=== PATIENT | female | born 1980 | race Caucasian/White ===

== ENCOUNTER 2018-10-04 08:06 | Emergency (ER) | payer BC ==
[~2018-10-04] VITALS: Ht 162.6 cm; Wt 93.0 kg
[2018-10-04] MEDS ORDERED: IV NORMAL SALINE 1,000ML 1,000 ML IV ONE (08:45)
[2018-10-04] MEDS ORDERED: IOHEXOL 300 MG/ML 75 ML VIAL. IV ONE (08:45)
--- NOTE | 2018-10-04 08:45 | PHYS DOC ---
Past History Past Medical History: Asthma Past Surgical History: No Surgical History Alcohol Use: Occasionally Drug Use: None Adult General Chief Complaint Chief Complaint: SORE THROAT HPI HPI 38-year-old female presents with rash, abdominal pain, sore throat. The patient got an insect bite a few days ago. The next morning, she started half an erythematous rash on her abdomen and upper thighs. It has continued to spread across her abdomen. It is occasionally pruritic, but mostly painful to palpation. She also has a sore throat this AM. She felt like she might have a fever, but did not measure one. Over the same 2 days, she has had abdominal pain with eating. She does have symptoms similar to this on occasion, but not as persistent. She has had diarrhea for a couple of weeks. She is currently taking PPI because of concern for a developing gastric ulcer. He is suspicious this may be what's going on, but has not had an EGD for verification. The patient has s evere seasonal allergies. She did hang her laundry to dry recently because the dryer was broken. No other changes in cosmetics or lotions. Review of Systems Review of Systems Constitutional: Denies fever or chills [] Eyes: Denies change in visual acuity, redness, or eye pain [] HENT: sore throat [] Respiratory: Denies cough or shortness of breath [] Cardiovascular: No additional information not addressed in HPI [] GI: Epigastric abdominal pain, nausea, diarrhea [] : Denies dysuria or hematuria [] Musculoskeletal: Denies back pain or joint pain [] Integument: Rash[] Neurologic: Denies headache, focal weakness or sensory changes [] Endocrine: Denies polyuria or polydipsia [] All other systems were reviewed and found to be within normal limits, except as documented in this note. Current Medications Current Medications Current Medications Medications (Trade) Dose Ordered Sig/Barbara Start Time Stop Time Status Last Admin Dose Admin Sodium Chloride 1,000 ml @ 1,000 mls/hr 1X ONCE 10/04/18 08:45 10/04/18 09:44 UNV Allergies Allergies Allergies Coded Allergies Type Severity Reaction Last Updated Verified Sulfa (Sulfonamide Antibiotics) Allergy Intermediate 10/04/18 Yes Physical Exam Physical Exam Constitutional: Well developed, obese, well nourished, no acute distress, non- toxic appearance. [] HENT: Normocephalic, atraumatic, bilateral external ears normal, oropharynx moist, no pharyngeal erythema, no oral exudates, nose normal. [] Eyes: PERRLA, EOMI, conjunctiva normal, no discharge. [] Neck: Normal range of motion, no tenderness, supple, no stridor. [] Cardiovascular:Heart rate regular rhythm, no murmur [] Lungs & Thorax: Bilateral breath sounds clear to auscultation [] Abdomen: Bowel sounds normal, soft, mild epigastric tenderness, no masses, no pulsatile masses. [] Skin: Scattered erythematous papules, not warm to the touch over the lower abdomen and upper thighs.[] Back: No tenderness, no CVA tenderness. [] Extremities: No tenderness, no cyanosis, no clubbing, ROM intact, no edema. [] Neurologic: Alert and oriented X 3, normal motor function, normal sensory function, no focal deficits noted. [] Psychologic: Affect normal, judgement normal, mood normal. [] Current Patient Data Vital Signs Vital Signs Date Time Temp Pulse Resp B/P (MAP) Pulse Ox O2 Delivery O2 Flow Rate FiO2 10/04/18 08:19 98.5 83 22 100 Room Air EKG EKG [] Radiology/Procedures Radiology/Procedures [] Impressions: ABDOMEN LTD History: Gallstone. Right upper quadrant pain. Comparison: CT October 04, 2018. Technique: Transabdominal ultrasound images are obtained of the right upper quadrant. Findings: Visualized pancreas is unremarkable. Chronic, well seen due to overlying bowel gas. Liver is normal in echogenicity. Right hepatic lobe measures 16.1 cm. Portal flow is hepatopedal. Mobile stone within the lumen of the gallbladder measures 2.7 cm. No pericholecystic fluid or gallbladder wall thickening. Negative sonographic Juárez sign. Common bile duct caliber is normal measuring 2.7 mm in diameter. The right kidney measures 10.8 x 3.9 x 4.3 cm in length and is without evidence of obstruction or stone. IVC is patent. Nonaneurysmal proximal and mid aorta. Distal aorta not well seen due to overlying bowel gas. IMPRESSION: 1. Cholelithiasis. Electronically signed by: Marc Scales DO (10/04/2018 10:34 AM) [facility] DICTATED AND SIGNED BY: MARC SCALES DO DATE: 10/04/18 1034 CC: FRANCES BETTENCOURT DO; HESHAM MUIR ~ Axial CT of the abdomen and pelvis were obtained after the administration of 75 cc Isovue 370. Coronal and sagittal reformats are also available. Exposure: One or more of the following individualized dose reduction techniques were utilized for this examination: 1. Automated exposure control 2. Adjustment of the mA and/or kV according to patient size 3. Use of iterative reconstruction technique Indication: Right-sided abdominal pain and diarrhea. Comparison: None. Findings: The heart is unenlarged. Lung bases are clear. Liver is unremarkable in appearance. Spleen, adrenals, kidneys and pancreas appear normal. There may be a radiolucent stone in the gallbladder lumen. The stomach, small and large bowel are nondistended. No free air or fluid. Abdominal aorta is nonaneurysmal. Portal, superior mesenteric and splenic veins are normal in appearance. Bony structures are unremarkable in appearance. IMPRESSION: 1. Possible radiolucent gallstone. Correlate with ultrasound imaging. There may also be mild pericholecystic fluid. Again ultrasound correlation would BE helpful. Electronically signed by: Trino Nixon MD (10/04/2018 9:16 AM) [facility] DICTATED AND SIGNED BY: TRINO NIXON MD DATE: 10/04/18 0916 CC: FRANCES BETTENCOURT DO; HESHAM MUIR ~ Course & Med Decision Making Course & Med Decision Making Pertinent Labs and Imaging studies reviewed. (See chart for details) Patient's labs are unremarkable. Her CT scan shows gallstone and a further options recommended. Portion shows large gallstone, but is nonobstructing. The patient may be having an allergic reaction in addition to her chronic gallbladder problem. I will treat her with Benadryl and Solu-Medrol in the ED. I recommend she follow up with general surgery about her gallbladder. [] Dragon Disclaimer Dragon Disclaimer This electronic medical record was generated, in whole or in part, using a voice recognition dictation system. Departure Departure: Impression: Primary Impression: Allergic reaction Additional Impression: Cholelithiasis Disposition: HOME, SELF-CARE Condition: STABLE Referrals: HESHAM MUIR (PCP) Scripts Prednisone (PREDNISONE) 10 Mg Tablet 50 MG PO DAILY for allergic reaction for 3 Days, #15 TAB Prov: FRANCES BETTENCOURT DO 10/04/18 Problem Qualifiers Primary Impression: Allergic reaction Encounter type: initial encounter Qualified Codes: T78.40XA - Allergy, unspecified, initial encounter Additional Impression: Cholelithiasis Cholelithiasis location: gallbladder Cholecystitis presence: without cholecystitis Biliary obstruction: without biliary obstruction Qualified Codes: K80.20 - Calculus of gallbladder without cholecystitis without obstruction FRANCES BETTENCOURT DO Oct 04, 2018 08:45
[2018-10-04 08:54] LABS: BASO % 1 % (0-3); EOS # 0.1 x10^3/uL (0.0-0.7); EOS % 2 % (0-3); HEMOGLOBIN 15.5 g/dL (12.0-15.5); LYMPH # 1.5 x10^3/uL (1.0-4.8); LYMPH % 21 % (24-48); MEAN CORPUSCULAR HEMOGLOBIN 32 pg (25-35); MEAN CORPUSCULAR HGB CONC 35 g/dL (31-37); MEAN CORPUSCULAR VOLUME 93 fL (79-100); MONO # 0.4 x10^3/uL (0.0-1.1); MONO % 6 % (0-9); NEUT % 71 % (31-73); PLATELET COUNT 348 x10^3/uL (140-400); RED BLOOD COUNT 4.84 x10^6/uL (3.50-5.40); RED CELL DISTRIBUTION WIDTH 12.2 % (11.5-14.5); WHITE BLOOD COUNT 7.1 x10^3/uL (4.0-11.0)
[2018-10-04 09:07] LABS: ALBUMIN 3.4 g/dL (3.4-5.0); ALBUMIN/GLOBULIN RATIO 0.9 (1.0-1.7); CREATININE 0.9 mg/dL (0.6-1.0); GFR 70.1; POTASSIUM 3.9 mmol/L (3.5-5.1); TOTAL BILIRUBIN 0.3 mg/dL (0.2-1.0); TOTAL PROTEIN 7.4 g/dL (6.4-8.2)
--- NOTE | 2018-10-04 09:19 | RAD ---
Axial CT of the abdomen and pelvis were obtained after the administration of 75 cc Isovue 370. Coronal and sagittal reformats are also available. Exposure: One or more of the following individualized dose reduction techniques were utilized for this examination: 1. Automated exposure control 2. Adjustment of the mA and/or kV according to patient size 3. Use of iterative reconstruction technique Indication: Right-sided abdominal pain and diarrhea. Comparison: None. Findings: The heart is unenlarged. Lung bases are clear. Liver is unremarkable in appearance. Spleen, adrenals, kidneys and pancreas appear normal. There may be a radiolucent stone in the gallbladder lumen. The stomach, small and large bowel are nondistended. No free air or fluid. Abdominal aorta is nonaneurysmal. Portal, superior mesenteric and splenic veins are normal in appearance. Bony structures are unremarkable in appearance. IMPRESSION: 1. Possible radiolucent gallstone. Correlate with ultrasound imaging. There may also be mild pericholecystic fluid. Again ultrasound correlation would BE helpful. Electronically signed by: Trino Nixon MD (10/04/2018 9:16 AM) [facility]
[2018-10-04 09:40] VITALS: BP 155/59
[2018-10-04] MEDS ORDERED: methylPREDNISolone SOD SUCC PF 125 MG/2 ML VIAL. IV ONE (10:00)
[2018-10-04] MEDS ORDERED: diphenhydrAMINE 50 MG/ML VIAL IVP ONE (10:00)
--- NOTE | 2018-10-04 10:37 | RAD ---
ABDOMEN LTD History: Gallstone. Right upper quadrant pain. Comparison: CT October 04, 2018. Technique: Transabdominal ultrasound images are obtained of the right upper quadrant. Findings: Visualized pancreas is unremarkable. Chronic, well seen due to overlying bowel gas. Liver is normal in echogenicity. Right hepatic lobe measures 16.1 cm. Portal flow is hepatopedal. Mobile stone within the lumen of the gallbladder measures 2.7 cm. No pericholecystic fluid or gallbladder wall thickening. Negative sonographic Juárez sign. Common bile duct caliber is normal measuring 2.7 mm in diameter. The right kidney measures 10.8 x 3.9 x 4.3 cm in length and is without evidence of obstruction or stone. IVC is patent. Nonaneurysmal proximal and mid aorta. Distal aorta not well seen due to overlying bowel gas. IMPRESSION: 1. Cholelithiasis. Electronically signed by: Marc Scales DO (10/04/2018 10:34 AM) [facility]
[2018-10-04] MEDS ORDERED: diphenhydrAMINE HCL 25 MG CAPSULE PO ONE ×2 (11:46→12:00)
[2018-10-04] MEDS ORDERED: predniSONE 20 MG TABLET ONE (11:46)
[2018-10-04] MEDS ORDERED: PRED-220 PO (11:46)
[2018-10-04] MEDS ORDERED: predniSONE 20 MG TABLET PO ONE (12:00)
== END 2018-10-04 11:55 | disposition home or self-care (01) ==
LOC: ER 08:06
DX: T78.40XA Allergy, unspecified, initial encounter (principal); K80.20 Calculus of gallbladder without cholecystitis without obstruction; R19.7 Diarrhea, unspecified; J02.9 Acute pharyngitis, unspecified; J45.909 Unspecified asthma, uncomplicated; Z88.2 Allergy status to sulfonamides; X58.XXXA Exposure to other specified factors, initial encounter
CPT/HCPCS: 36415; 74177; 76705; 80053; 83690; 85025; 87070; 87880; 96360; 99285; J7512; Q0163; Q9967; J7030

== ENCOUNTER 2019-01-19 16:35 | Emergency (ER) | payer BC ==
[~2019-01-19] VITALS: Ht 162.6 cm; Wt 87.5 kg
[~2019-01-19 16:35] MED LIST: PRED-220 PO
--- NOTE | 2019-01-19 17:12 | EKG ---
[address] [address] Test Date: 2019-01-19 Test Time: 16:52:00 Pat Name: JEROD BOSE Department: Room: Gender: F [employer]: : 1980 Requested By: ERIKA DE SANTIAGO Order Number: [id number] Reading MD: Measurements Intervals [place] Rate: 82 P: 3 VT: 108 QRS: 27 QRSD: 90 T: 16 QT: 372 QTc: 438 Interpretive Statements SINUS RHYTHM NO SPECIFIC ECG ABNORMALITIES RI6.01 No previous ECG available for comparison
[2019-01-19] MEDS ORDERED: CONTRAST GIVEN MC PRN (17:15)
--- NOTE | 2019-01-19 17:19 | PHYS DOC ---
Past History Past Medical History: Anxiety, Asthma, Depression (ERIKA DE SANTIAGO DO) Past Surgical History: Cholecystectomy (ERIKA DE SANTIAGO DO) Smoking: Non-smoker Alcohol Use: None Drug Use: None (ERIKA DE SANTIAGO DO) Adult General Chief Complaint Chief Complaint: CHEST PAIN HPI HPI Patient is a 38-year-old female presents complaining of left sided upper chest discomfort that started approximately 6:00 this morning as she was driving to work. It is respirophasic in nature. No relief with home medicines. No nausea or vomiting. No radiation of the discomfort. Patient was seen at the [facility] and sent here for further evaluation due to their concern of about a pulmonary embolism given that she is on control pills. She had surgery in October 2018, laparoscopic cholecystectomy. There has been no travel, no other trauma, and no known hypercoagulable state. No worsening of the discomfort with exertion. She reports having a fever earlier this week. She has had a mild cough as well.[] (ERIKA DE SANTIAGO DO) Review of Systems Review of Systems Constitutional: Denies fever or chills [] Eyes: Denies change in visual acuity, redness, or eye pain [] HENT: Denies nasal congestion or sore throat [] Respiratory: Denies cough or shortness of breath [] Cardiovascular: No additional information not addressed in HPI [] GI: Denies abdominal pain, nausea, vomiting, bloody stools or diarrhea [] : Denies dysuria or hematuria [] Musculoskeletal: Denies back pain or joint pain [] Integument: Denies rash or skin lesions [] Neurologic: Denies headache, focal weakness or sensory changes [] Endocrine: Denies polyuria or polydipsia [] All other systems were reviewed and found to be within normal limits, except as documented in this note. (ERIKA DE SANTIAGO DO) Current Medications Current Medications Current Medications Medications (Trade) Dose Ordered Sig/Barbara Start Time Stop Time Status Last Admin Dose Admin Aspirin (Children'S Aspirin) 324 mg 1X ONCE 01/19/19 17:30 01/19/19 17:31 Info (Do NOT chart on this entry -- for MONITORING) 1 each PRN DAILY PRN 01/19/19 17:15 01/21/19 17:14 Iohexol (Omnipaque 350 Mg/ml) 100 ml 1X ONCE 01/19/19 17:30 01/19/19 17:31 Sodium Chloride 1,000 ml @ 1,000 mls/hr Q1H 01/19/19 17:30 01/19/19 18:29 (ERIKA DE SANTIAGO DO) Allergies Allergies Allergies Coded Allergies Type Severity Reaction Last Updated Verified Sulfa (Sulfonamide Antibiotics) Allergy Intermediate 10/04/18 Yes (ERIKA DE SANTIAGO DO) Physical Exam Physical Exam Constitutional: Well developed, well nourished, no acute distress, non-toxic appearance. [] HENT: Normocephalic, atraumatic, bilateral external ears normal, oropharynx moist, no oral exudates, nose normal. [] Eyes: PERRLA, EOMI, conjunctiva normal, no discharge. [] Neck: Normal range of motion, no tenderness, supple, no stridor. [] Cardiovascular:Heart rate regular rhythm, no murmur [] Lungs & Thorax: Bilateral breath sounds clear to auscultation. Left upper chest tenderness to palpation. This re-creates the discomfort. There is no crepitus. No bruising. No flail segment noted. [] Abdomen: Bowel sounds normal, soft, no tenderness, no masses, no pulsatile masses. [] Skin: Warm, dry, no erythema, no rash. [] Back: No tenderness, no CVA tenderness. [] Extremities: No tenderness, no cyanosis, no clubbing, ROM intact, no edema. [] Neurologic: Alert and oriented X 3, normal motor function, normal sensory function, no focal deficits noted. [] Psychologic: Affect normal, judgement normal, mood normal. [] (ERIKA DE SANTIAGO DO) EKG EKG EKG shows a sinus rhythm at 82 bpm, normal axis, QTC of 438 ms, no ST elevations. Interpreted by me at 1656[] (ERIKA DE SANTIAGO DO) Radiology/Procedures Radiology/Procedures [] ([facility]) Radiology/Procedures [address] [address] IMAGING REPORT Signed PATIENT: JEROD BOSE CACCOUNT: [id number] : 1980 LOCATION: ER AGE: 38 SEX: F EXAM STATUS: REG ER ORD. PHYSICIAN: ERIKA DE SANTIAGO DO REASON: left-sided respirophasic chest pain PROCEDURE: CT ANGIOGRAPHY CHEST Examination: CT ANGIOGRAPHY CHEST History: Left-sided chest pain with breathing Comparison/Correlation: None Findings: Axial images of chest were obtained following IV contrast. Pulmonary arteriography protocol. Maximum intensity projection images were provided. Excellent opacification of pulmonary arteries in the thoracic aorta were obtained. Thoracic aorta is unremarkable. No pulmonary arterial thromboembolic disease. Bony structures are unremarkable. There is a small left pleural effusion. No pneumothorax or infiltrate. Bony structures are unremarkable. No enlarged thoracic lymph nodes. Cholecystectomy evident. Bony structures are unremarkable. Impression: Small left pleural effusion. No PE. PQRS Compliance Statement: One or more of the following individualized dose reduction techniques were utilized for this examination: 1. Automated exposure control 2. Adjustment of the mA and/or kV according to patient size 3. Use of iterative reconstruction technique Electronically signed by: Braulio Al MD (01/19/2019 6:26 PM) [id number] DICTATED AND SIGNED BY: BRAULIO AL MD DATE: 01/19/191825 CC: ERIKA DE SANTIAGO DO; NATAN ADAIR MD; HESHAM MUIR [facility] ~ (NATAN ADAIR MD) Course & Med Decision Making Course & Med Decision Making Pertinent Labs and Imaging studies reviewed. (See chart for details) ED course: Patient arrived, was placed in bed, and tolerated exam well. IV access established, and she was transported to and from CT. While lying down for the CT scan, she felt a pop in her left chest in the region of the discomfort. At the time of this dictation laboratory testing and imaging findings are still in progress. Patient care was endorsed to the nighttime physician at 1800 with those results and disposition pending.[] (ERIKA DE SANTIAGO DO) Course & Med Decision Making Impression: 1. 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 Hyponatremia 3.3 3. Hypo-magnesium 1.9 Patient increase her supplement of potassium rich foods. Does have a history of previous low potassium levels for etiology unclear. Patient supplement magnesium. Patient to take Tylenol ibuprofen for pain. We'll treat for possible bacterial cause of her pleurisy with a short course of antibiotics Azithromax and steroids prednisone. Patient follow-up primary care. Patient return if any concerns. (NATAN ADAIR MD) Dragon Disclaimer Dragon Disclaimer This electronic medical record was generated, in whole or in part, using a voice recognition dictation system. (ERIKA DE SANTIAGO DO) Departure Departure: Disposition: HOME/RESIDENCE PRIOR TO ADM Condition: STABLE Referrals: HESHAM MUIR (PCP) Scripts Azithromycin (ZITHROMAX) 250 Mg Tablet 250 MG PO DAILY for ANTI-BIOTIC for 5 Days, #5 TAB 0 Refills Prov: NATAN ADAIR MD 01/19/19 Prednisone (PREDNISONE) 50 Mg Tablet 50 MG PO DAILY for pleurisy for 5 Days, #5 TAB Prov: NATAN ADAIR MD 01/19/19 Dragon Disclaimer This chart was dictated in whole or in part using Voice Recognition software in a busy, high-work load, and often noisy Emergency Department environment. It may contain unintended and wholly unrecognized errors or omissions. (NATAN ADAIR MD) ERIKA DE SANTIAGO DO Jan 19, 2019 17:19 NATAN ADAIR MD Jan 19, 2019 18:56
[2019-01-19 17:23] LABS: BASO % 0 % (0-3); EOS # 0.1 x10^3/uL (0.0-0.7); EOS % 2 % (0-3); HEMATOCRIT 42.1 % (36.0-47.0); HEMOGLOBIN 14.3 g/dL (12.0-15.5); LYMPH # 1.9 x10^3/uL (1.0-4.8); LYMPH % 28 % (24-48); MEAN CORPUSCULAR HEMOGLOBIN 31 pg (25-35); MEAN CORPUSCULAR HGB CONC 34 g/dL (31-37); MEAN CORPUSCULAR VOLUME 92 fL (79-100); MONO # 0.6 x10^3/uL (0.0-1.1); MONO % 9 % (0-9); NEUT # 4.3 x10^3uL (1.8-7.7); NEUT % 61 % (31-73); PLATELET COUNT 315 x10^3/uL (140-400); RED BLOOD COUNT 4.56 x10^6/uL (3.50-5.40); RED CELL DISTRIBUTION WIDTH 12.1 % (11.5-14.5)
[2019-01-19] MEDS ORDERED: IOHEXOL 350 MG/ML 100 ML VIAL. IV ONE (17:30)
[2019-01-19] MEDS ORDERED: IV NORMAL SALINE 1,000ML 1,000 ML IV SCH (17:30)
[2019-01-19] MEDS ORDERED: ASPIRIN 81 MG TAB.CHEW PO ONE (17:30)
[2019-01-19 17:40] LABS: ALBUMIN 3.3 g/dL (3.4-5.0); ALBUMIN/GLOBULIN RATIO 0.9 (1.0-1.7); CALCIUM 8.5 mg/dL (8.5-10.1); CREATININE 0.8 mg/dL (0.6-1.0); GFR 80.3; MAGNESIUM 1.9 mg/dL (1.8-2.4); POTASSIUM 3.3 mmol/L (3.5-5.1); TOTAL BILIRUBIN 0.3 mg/dL (0.2-1.0); TOTAL PROTEIN 7.1 g/dL (6.4-8.2)
--- NOTE | 2019-01-19 18:30 | RAD ---
Examination: CT ANGIOGRAPHY CHEST History: Left-sided chest pain with breathing Comparison/Correlation: None Findings: Axial images of chest were obtained following IV contrast. Pulmonary arteriography protocol. Maximum intensity projection images were provided. Excellent opacification of pulmonary arteries in the thoracic aorta were obtained. Thoracic aorta is unremarkable. No pulmonary arterial thromboembolic disease. Bony structures are unremarkable. There is a small left pleural effusion. No pneumothorax or infiltrate. Bony structures are unremarkable. No enlarged thoracic lymph nodes. Cholecystectomy evident. Bony structures are unremarkable. Impression: Small left pleural effusion. No PE. PQRS Compliance Statement: One or more of the following individualized dose reduction techniques were utilized for this examination: 1. Automated exposure control 2. Adjustment of the mA and/or kV according to patient size 3. Use of iterative reconstruction technique Electronically signed by: Braulio Fuentes MD (01/19/2019 6:26 PM) [facility]
[2019-01-19] MEDS ORDERED: AZIT250T PO (19:05)
[2019-01-19] MEDS ORDERED: PRED50TA PO (19:05)
[2019-01-19] MEDS ORDERED: POTASSIUM CHLORIDE 20 MEQ TABLET.ER. PO ONE (19:30)
[2019-01-19] MEDS ORDERED: predniSONE 10 MG TABLET PO ONE (19:30)
[2019-01-19] MEDS ORDERED: HYDROcodon/IBUPROFEN 7.5/200MG 1 TAB TABLET PO ONE (19:30)
[2019-01-19] MEDS ORDERED: AZITHROMYCIN 250 MG TABLET. PO ONE (19:30)
[2019-01-19] MEDS ORDERED: MAGNESIUM HYDROXIDE 2,400 MG/30 ML ORAL.SUSP. PO ONE (19:30)
== END 2019-01-19 19:18 | disposition home or self-care (01) ==
LOC: ER 16:35
DX: R07.81 Pleurodynia (principal); E87.1 Hypo-osmolality and hyponatremia; E83.42 Hypomagnesemia; F41.9 Anxiety disorder, unspecified; J45.909 Unspecified asthma, uncomplicated; F32.9 Major depressive disorder, single episode, unspecified; Z88.2 Allergy status to sulfonamides
CPT/HCPCS: 36415; 71275; 80053; 83690; 83735; 83880; 84443; 84484; 85025; 93005; 99285; J0456; J7512; Q9967; J7030